=== PATIENT | male | born 1955 | race Two or more races ===

== ENCOUNTER 2019-06-19 14:35 | Outpatient (CLI) | payer OTHER ==
[2019-06-19 14:59] LABS: BASOPHILS % (AUTO) 0.4 % (0.0-2.0); EOSINOPHILS % (AUTO) 3.3 % (0.0-3.0); HEMATOCRIT 45.1 % (42.0-52.0); HEMOGLOBIN 15.1 G/DL (14.2-18.0); LYMPHOCYTES % (AUTO) 22.5 % (20.0-45.0); MEAN CORPUSCULAR VOLUME 91 FL (80-99); MONOCYTES % (AUTO) 10.5 % (1.0-10.0); NEUTROPHILS % (AUTO) 63.3 % (45.0-75.0); PLATELET COUNT 225 K/UL (150-450); RED BLOOD COUNT 4.94 M/UL (4.70-6.10); RED CELL DISTRIBUTION WIDTH 11.9 % (11.6-14.8)
[2019-06-19 15:16] LABS: ALANINE AMINOTRANSFERASE 29 U/L (12-78); ALBUMIN 3.6 G/DL (3.4-5.0); ALKALINE PHOSPHATASE 53 U/L (46-116); ANION GAP 5 mmol/L (5-15); ASPARTATE AMINO TRANSFERASE 21 U/L (15-37); BILIRUBIN,DIRECT 0.2 MG/DL (0.0-0.3); BILIRUBIN,TOTAL 0.6 MG/DL (0.2-1.0); BLOOD UREA NITROGEN 15 mg/dL (7-18); CALCIUM 8.5 MG/DL (8.5-10.1); CARBON DIOXIDE 31 MMOL/L (21-32); CHLORIDE 103 MMOL/L (98-107); CREATININE 1.1 MG/DL (0.55-1.30); POTASSIUM 3.9 MMOL/L (3.5-5.1); SODIUM 139 MMOL/L (136-145)
== END 2019-06-19 16:35 | disposition home or self-care (01) ==
LOC: LAB 14:35
DX: K37 Unspecified appendicitis (principal)
CPT/HCPCS: 36415; 80048; 80076; 85025

== ENCOUNTER 2019-06-20 09:49 | Outpatient (CLI) | payer OTHER ==
--- NOTE | 2019-06-20 11:43 | Diagnostic Imaging Report ---
Indication: Right lower quadrant abdominal pain Technique: Grayscale and duplex Doppler imaging of the right lower quadrant abdomen performed. Comparison: None Findings: The cecum and terminal ileum identified. The ileocecal valve is identified. The appendix is not seen. No abnormal fluid collections identified. No tenderness elicited. No abnormalities of the liver, spleen, gallbladder identified. No biliary ductal dilatation is seen or stones. CBD is 3.4 mm. Main portal vein is widely patent by Doppler examination. There is no hydronephrosis or ascites. The pancreas is grossly unremarkable as visualized. Aorta is partially obscured. IMPRESSION: No evidence of acute appendicitis on this examination. Negative exam otherwise
== END 2019-06-20 11:49 | disposition home or self-care (01) ==
LOC: ULS 09:49
DX: R10.31 Right lower quadrant pain (principal)
CPT/HCPCS: 76700

== ENCOUNTER 2019-06-25 05:48 | Day surgery (SDC) | payer OTHER ==
[2019-06-25] VITALS (9 sets, daily range): BP systolic 120–130; BP diastolic 71–85
[~2019-06-25] VITALS: Ht 177.8 cm; Wt 80.7 kg
[2019-06-25] MEDS ORDERED: NKM (06:13)
[2019-06-25] MEDS ORDERED: LR 1000ml ONE (06:30)
[2019-06-25] MEDS ORDERED: Propofol 200mg/20ml IV ONE (06:30)
[2019-06-25] MEDS ORDERED: Lidocaine 1% MPF 10mg/ml 5ml ONE (06:30)
[2019-06-25] MEDS ORDERED: LR 1000ml 1,000 ML IVLG SCH (06:52)
[2019-06-25] MEDS ORDERED: Atropine Sulfate 0.4mg/ml inj IVP PRN (07:00)
[2019-06-25] MEDS ORDERED: Midazolam 2mg/2ml Inj IVP PRN (07:00)
[2019-06-25] MEDS ORDERED: DiphenhydrAMINE 50mg/ml Inj IVP PRN (07:00)
[2019-06-25] MEDS ORDERED: fentaNYL 100 mcg/2 mL IV PRN (07:00)
--- NOTE | 2019-06-25 07:04 | Anethesia Preoperative Eval ---
Anesthesia Pre-op PMH/ROS General Date of Evaluation: Jun 25, 2019 Time of Evaluation: 06:53 Anesthesiologist: flaco ASA Score: ASA 2 Mallampati Score Class I : Soft palate, uvula, fauces, pillars visible Class II: Soft palate, uvula, fauces visible Class III: Soft palate, base of uvula visible Class IV: Only hard plate visible Mallampati Classification: Class II Surgeon: carlos Diagnosis: gerd Surgical Procedure: egd Anesthesia History: none Social History: smoking - nonsmoker Family History: no anesthesia problems Allergies: Coded Allergies: No Known Allergies (Unverified , 06/25/19) Medications: see eMAR Patient NPO?: Yes Past Medical History Cardiovascular: Reports: arrhythmia Anesthesia Pre-op Phys. Exam Physician Exam Last Vital Signs Date Time Temp Pulse Resp B/P (MAP) Pulse Ox O2 Delivery O2 Flow Rate FiO2 06/25/19 06:20 97.2 60 20 123/75 97 Room Air Constitutional: NAD Neurologic: CN 2-12 intact Cardiovascular: RRR Respiratory: CTA Gastrointestinal: S/NT/ND Airway Exam Mallampati Score: Class II MO: full Neck: flexible TMD: 2fb ROM: full Anesthesia Pre-op A/P Studies Pre-op Studies: EKG - sinus bradycardia Risk Assessment & Plan Assessment: asa2 Plan: mac Status Change Before Surgery: No Pre-Antibiotics Drug: Kimberlee Perez MD Jun 25, 2019 07:04
--- NOTE | 2019-06-25 07:11 | Pre-Procedure Note/Attestation ---
Pre-Procedure Note/Attestation Complete Prior to Procedure Planned Procedure: not applicable Procedure Narrative: egd Indications for Procedure Pre-Operative Diagnosis: gerd Attestation I attest that I discussed the nature of the procedure; its benefits; risks and complications; and alternatives (and the risks and benefits of such alternatives ), prior to the procedure, with the patient (or the patient's legal tax representative). I attest that, if there was a reasonable possibility of needing a blood transfusion, the patient (or the patient's legal tax representative) was given the [facility] standardized written summary, pursuant to the [place] Blood Safety Act ([place] Health and Safety Code # 1645, as amended). I attest that I re-evaluated the patient just prior to the surgery and that there has been no change in the patient's H&P, except as documented below: Jeff Murphy MD Jun 25, 2019 07:11
--- NOTE | 2019-06-25 07:11 | Short Stay Surgery H&P ---
History of Present Illness History of Present Illness Chief Complaint GERD HPI Reinier Fuchs is a 63 year old male who was admitted on for GERD Patient History Allergies: Coded Allergies: No Known Allergies (Unverified , 06/25/19) Medication History Scheduled No Known Medications* (NKM - No Known Medications*), 0 ., (Reported) Review of Systems Cardiovascular: Reports: no symptoms Respiratory: Reports: no symptoms Skeletal: Reports: no symptoms Gastrointestinal: Reports: no symptoms Genitourinary: Reports: no symptoms Neurologic: Reports: no symptoms Endocrine: Reports: no symptoms Hematologic: Reports: no symptoms Physical Exam Vital Signs Last Vital Signs Date Time Temp Pulse Resp B/P (MAP) Pulse Ox O2 Delivery O2 Flow Rate FiO2 06/25/19 06:20 97.2 60 20 123/75 97 Room Air Skin: normal HENT: normal Heart: normal Lungs: normal Abdomen: normal Extremities: normal Plan Plan of Care egd Attestation Are the patient's medical conditions optimized for surgery? Attestation Response: yes Jeff Murphy MD Jun 25, 2019 07:11
--- NOTE | 2019-06-25 07:23 | Endoscopy Procedure Note ---
Endoscopy Procedure Note General Indication for Procedure: gerd Procedures Performed: EGD Operative Findings/Diagnosis: gastritis Specimen: yes Pt Tolerated Procedure Well: Yes Estimated Blood Loss: none Anesthesia Anesthesiologist: jose angel Anesthesia: MAC Inserted Devices Implant(s) used?: No GI Core Measures 50 yrs or older w/o bx or poly: Not Applicable 10yrs. F/U recommended: Not Applicable Jeff Murphy MD Jun 25, 2019 07:23
--- NOTE | 2019-06-25 08:24 | Immediate Post-Op Evaluation ---
Immediate Post-Op Evalulation Immediate Post-Op Evalulation Procedure: egd w/bx Date of Evaluation: Jun 25, 2019 Time of Evaluation: 07:38 IV Fluids: 250ml lr Blood Products: none Estimated Blood Loss: negligible Blood Pressure Systolic: 120 Blood Pressure Diastolic: 75 Pulse Rate: 58 Respiratory Rate: 18 O2 Sat by Pulse Oximetry: 99 Temperature (Fahrenheit): 97.1 Pain Score (1-10): 0 Nausea: No Vomiting: No Complications none Patient Status: awake, reacts, patent Hydration Status: adequate Drug: Kimberlee Perez MD Jun 25, 2019 08:24
--- NOTE | 2019-06-25 08:25 | 48 Hour Post Anesthesia Eval ---
Post Anesthesia Evaluation Procedure: egd w/bx Date of Evaluation: Jun 25, 2019 Time of Evaluation: 07:40 Blood Pressure Systolic: 123 0: 79 Pulse Rate: 53 Respiratory Rate: 18 Temperature (Fahrenheit): 97.1 O2 Sat by Pulse Oximetry: 99 Airway: patent Nausea: No Vomiting: No Pain Intensity: 0 Hydration Status: adequate Cardiopulmonary Status: stable Mental Status/LOC: patient returned to baseline Post-Anesthesia Complications: none Follow-up care needed: N/A Kimberlee Lai MD Jun 25, 2019 08:25
--- NOTE | 2019-06-25 12:15 | Procedure Note ---
DATE OF PROCEDURE: 06/25/2019 SURGEON: Jeff Murphy M.D. PROCEDURE: Upper endoscopy with biopsy. ANESTHESIA: Per Dr. Koch. INSTRUMENT: Olympus adult flexible upper endoscope. INDICATION: Chronic GERD, abdominal pain. REASON FOR PROCEDURE: The procedure, risks, benefits, and possible consequences, including hemorrhage, aspiration, perforation and infection, and alternative treatments, were explained to the patient/legal guardian by Dr. Jeff Murphy and the patient/legal guardian understood and accepted these risks. PROCEDURE IN DETAIL: After informed consent was obtained and the patient was adequately sedated, Olympus upper endoscope was advanced from mouth into the second portion of the duodenum and retroflexion was performed in the stomach. GE junction was found to be about 39 cm from the incisors. No evidence of any esophagitis. There was some inflammation below the Z-line in the cardia, which was biopsied. In the stomach, there was diffuse gastritis. Random biopsy from antrum was obtained to rule out H. pylori infection. Otherwise, the rest of the upper endoscopic examination was within normal limits. SUMMARY OF FINDINGS: 1. GE junction at 39 cm from the incisors. 2. Some inflammatory nodules below the Z-line, status post biopsy. 3. Gastritis, status post biopsy. RECOMMENDATIONS: Follow up biopsy results and treat accordingly. Jeff Murphy M.D. DR: ALEXI JOB#: [id number] CC:
--- NOTE | 2019-06-28 11:28 | Cardiology Report ---
APPROVED REPORT EKG Measurement Heart [id number] Sinus bradycardia Otherwise normal ECG
== END 2019-06-25 08:40 | disposition home or self-care (01) ==
LOC: GAS 05:48
DX: K21.9 Gastro-esophageal reflux disease without esophagitis (principal); R10.9 Unspecified abdominal pain; R00.1 Bradycardia, unspecified; K29.50 Unspecified chronic gastritis without bleeding
CPT/HCPCS: 43239; 93005; J2704; 94003; 94150